=== PATIENT | female | born 2000 ===

== ENCOUNTER 2025-07-26 05:34 | Emergency (ER) | payer OTHER, SELFPAY ==
--- NOTE | 2025-07-26 | ECG_ITS ---
Test Reason : EPIGASTRIC PAIN Blood Pressure : */* mmHG Vent. Rate : 108 BPM Atrial Rate : 108 BPM P-R Int : 114 ms QRS Dur : 84 ms QT Int : 320 ms P-R-T Axes : 39 40 27 degrees QTcB Int : 428 ms Sinus tachycardia Otherwise normal ECG No previous ECGs available Referred By: Generic ED Physician Electronically Signed By: TRACE GARCÍA MD
--- NOTE | ~2025-07-26 | CT_ITS ---
CLINICAL HISTORY: Abdominal pain, vomiting, R O appendicitis Exam: Contrast-enhanced CT abdomen and pelvis with multiplanar reformats. Comparison: None. Findings: CT abdomen: Lung bases are clear. Liver is free of focal lesions and ductal dilatation. Gallbladder is absent. Spleen appears unremarkable. Pancreas and adrenal glands appear unremarkable. Kidneys appear unremarkable. No free intraperitoneal fluid or retroperitoneal masses or adenopathy. Abdominal aorta is normal caliber. Bowel loops reveal no abnormal wall thickening or distention. The appendix is not identified, however there is no secondary CT evidence of appendicitis. No significant diverticular disease. CT pelvis: Uterus and adnexal structures appear unremarkable. Urinary bladder is nondistended although free of gross filling defects. No pelvic masses, fluid or adenopathy. Osseous structures reveal no destructive osseous lesions. Impression: 1. No acute abnormality or CT explanation for abdominal pain. Specifically, the appendix is not identified, however there is no secondary CT evidence of appendicitis. This document has been electronically signed by: Jhonny Golden MD on 07/26/2025 14:05:05
[2025-07-26 05:47] VITALS: BP 122/58; PULSE 110; RESP 18; TEMP 37.2; O2SAT 98; BMI 36.6
[2025-07-26 06:11] LABS: Hematocrit 42.4 % (37.0-47.0); Hemoglobin 13.9 g/dl (12.0-16.0); Imm Gran Abs Auto 0.04 X10*3/uL (0.00-0.03); Imm Gran Pct Auto 0.4 % (0.0-0.4); Lymphocytes Absolute Auto 0.4 X10*3/uL (1.2-4.9); Mean Corpuscular HGB Conc 32.8 g/dl (31.0-35.0); Mean Corpuscular Hemoglobin 27.9 pg (27.0-33.0); Mean Corpuscular Volume 85.1 fL (80.0-98.0); NRBC Abs Auto 0.000 X10*3/uL (0.0-0.012); NRBC Pct Auto 0.0 /100WBC (0.0-0.2); Platelet Count 312 X10*3/uL (160-400); Red Blood Count 4.98 X10*6/uL (4.20-5.50); SCAN SMEAR FLAG 1; White Blood Count 10.6 X10*3/uL (4.8-10.8)
[2025-07-26 06:15] LABS: MANUAL DIFF FLAG SCAN
[2025-07-26 06:33] LABS: Alanine Aminotransferase 13 U/L (0-31); Albumin Level 4.7 g/dL (3.5-5.0); Alkaline Phosphatase 83 U/L (39-117); Anion Gap 14 (12-20); Aspartate Amino Transferase 18 U/L (5-31); Blood Urea Nitrogen 18 mg/dL (9-16); Calcium 9.4 mg/dL (8.4-10.2); Carbon Dioxide 23 mmol/L (22-29); Chloride 108 mmol/L (96-108); Creatinine Clr Calc Pharmacy 134.1; Estimated Glomerular Filt Rate > 60; Lipase 19 U/L (8-78); Magnesium 1.6 mg/dL (1.6-2.6); Potassium 3.8 mmol/L (3.3-5.1); Sodium 141 mmol/L (135-145); Total Protein 7.5 g/dL (6.5-8.0)
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
[2025-07-26 06:48] LABS: Resp Syncy Virus RNA Qual PCR NEGATIVE (Negative); SARS COV2 PCR INHOUSE NEGATIVE (Negative)
--- NOTE | 2025-07-26 07:03 | ED_ITS ---
HPI - Abdominal Pain General Chief Complaint: Abdominal Pain Stated Complaint: N/V/D Time Seen by Provider: 07/26/25 06:41 Source: patient and family Mode of arrival: ambulatory Limitations: no limitations History of Present Illness ED Provider: DR. Means HPI narrative: 25-year-old female brought in for evaluation of nausea, vomiting, nonbloody watery diarrhea, abdominal cramps x1 day started since last night after eating home made hamburger, no fever, no chills, no CP, abdominal pain described as lower abdominal cramps, pain started in the upper abdomen now it is moving down to the suprapubic area feels like cramps on and off associated with nonbloody watery diarrhea and vomiting. No recent travel, no recent antibiotic use. Related Data Previous Rx's ?Medication ?Instructions ?Recorded ondansetron 4 mg disintegrating 4 mg PO TID PRN nausea and 07/26/25 tablet vomiting 5 days #10 tabs Allergies Allergy/AdvReac Type Severity Reaction Status Date / Time No Known Allergies Allergy Verified 07/26/25 05:51 Review of Systems Review of Systems All other systems are reviewed and are negative Constitutional: Reports as per HPI and Reports no additional constitutional complaints Eyes: Reports as per HPI and Reports no additional eye complaints Reports system reviewed and no additional complaints, except as documented Cardiovascular: Reports as per HPI and Reports no additional cardiovascular complaints Respiratory: Reports as per HPI and Reports no additional respiratory complaints Gastrointestinal: Reports as per HPI and Reports no additional gastrointestinal complaints Genitourinary: Reports no additional female genitourinary complaints Musculoskeletal: Reports no additional musculoskeletal complaints Skin/Breast: Reports system reviewed and no additional complaints, except as docu Psychiatric: Reports no additional psychiatric complaints Endocrine: Reports no additional endocrine complaints Hematologic/Lymphatic: Reports no additional hematologic/lymphatic complaints Allergic/Immunologic: Reports no additional allergic/immunologic complaints Reports system reviewed and no additional complaints, except as documented and Reports Abnormal speech present Physical Exam ED Vital Signs: Vital Signs - 24 hr 07/26/25 08:19 07/26/25 10:06 07/26/25 13:39 Temperature 99.6 F 98.9 F Pulse Rate 105 H 102 H 93 Respiratory Rate 18 16 16 Blood Pressure 117/61 121/64 Pulse Oximetry 98 95 98 Oxygen Delivery Method Room Air Room Air Room Air 07/26/25 17:20 07/26/25 17:26 Temperature 98.9 F 98.9 F Pulse Rate 88 88 Respiratory Rate 16 16 Blood Pressure 122/60 122/60 Pulse Oximetry 99 99 Oxygen Delivery Method Room Air Room Air BMI result Body Mass Index 36.6 Vital signs have been reviewed and appear to be correct. Blood pressure elevated. Heart rate normal. Respiratory rate normal. Temperature normal. Oxygen saturation normal. Appearance: Alert. Oriented X3. No acute distress. Head: Normal external exam. Normocephalic. Atraumatic. No Barnes signs noted. No raccoon eyes noted Eyes: PERRLA. EOMI. Conjunctiva and sclera normal. Eyelids normal. ENT: TM's Normal. Pharynx normal. Uvula midline. Moist mucous membranes. No trismus noted. No drooling noted. No muffled voice noted. Neck: Normal inspection. Neck supple. FROM. No adenopathy. Thyroid Normal. No meningeal signs. No neck mass noted. CVS: Normal heart rate and rhythm. Heart sound normal. No murmurs noted. Pulses normal throughout. Respiratory: No respiratory distress. Painless inspiration. Breath sounds normal. No wheezes/rales/rhonchi noted. Chest nontender. No accessory muscle usage noted or decreased air movement noted. Abdomen: Soft, mild epigastric/suprapubic tenderness, no rebound tenderness, no guarding. Bowel sounds normal in all 4 quadrants. No distention noted. No organomegaly noted. No visible injury noted. Back: No CVA tenderness. Full range of motion noted. Skin: Skin warm and dry. Normal skin color. Normal skin turgor. No rashes/lesions/lacerations noted. Extremities: No lower extremity edema. Extremities exhibit normal range of motion. Extremities nontender. Neuro: Oriented X 3. Cranial nerve exam: II-XII are grossly intact No motor deficit. No sensory deficit. Reflexes normal. Course Reevaluation(s) Reevaluation #1: Patient feels much better, able to tolerate p.o. intake, mild nausea with no vomiting, mild abdominal pain with negative CT abdomen pelvis will discharge the patient to follow-up with PCP. Time: 17:00 Medical Decision Making Medical Decision Making MDM Narrative: Patient presents today with having abdominal pain nausea vomiting diarrhea. Generalized malaise. Watery diarrhea. CT scan of the abdomen pelvis per radiology's interpretation is grossly negative. test is negative no related issue. Patient's white count is 11. Slight shift consistent with the diarrhea patient's BUN and creatinine is normal. Eighteen and 0.75 consistent with some mild dehydration IV fluids was given LFTs are normal. Urine showed no gross infection. COVID flu RSV were all negative. Tolerating fluids will discharge home. Differential Diagnosis Differential Diagnoses: The differential diagnosis associated with the presentation includes ( Appendicitis, pancreatitis, colitis, diverticulitis, electrolyte derangement, severe anemia, poisoning, gastroenteritis.) Admission/Observation Consideration of admission/observation: Escalation of care including admission/observation considered Lab Data MDM Lab Attestation statement: I reviewed the patient's lab results. 07/26/25 06:05 07/26/25 06:05 Labs: Lab Results 07/26/25 07/26/25 Range/Units 06:05 06:58 WBC 10.6 (4.8-10.8) X10*3/uL RBC 4.98 (4.20-5.50) X10*6/uL Hgb 13.9 (12.0-16.0) g/dl Hct 42.4 (37.0-47.0) % MCV 85.1 (80.0-98.0) fL MCH 27.9 (27.0-33.0) pg MCHC 32.8 (31.0-35.0) g/dl RDW 12.9 (11.0-16.0) % Plt Count 312 (160-400) X10*3/uL MPV 9.2 L (9.4-12.3) fL Immature Gran % (Auto) 0.4 (0.0-0.4) % Neut % (Auto) 91.7 H (45-73) % Lymph % (Auto) 3.4 L (20-40) % [place] % (Auto) 4.1 (2-11) % Eos % (Auto) 0.1 (0-4) % Baso % (Auto) 0.3 (0-2) % Lymph # (Auto) 0.4 L (1.2-4.9) X10*3/uL [place] # (Auto) 0.4 (0.1-1.2) X10*3/uL Eos # (Auto) 0.0 (0.0-0.4) X10*3/uL Baso # (Auto) 0.0 (0.0-0.2) X10*3/uL Abs Immat Gran (auto) 0.04 H (0.00-0.03) X10*3/uL Absolute Neuts (auto) 9.7 H (2.0-8.3) x10*3/uL Absolute Nucleated RBC 0.000 (0.0-0.012) X10*3/uL Nucleated RBC % (auto) 0.0 (0.0-0.2) /100WBC Smear Tech's Comments VERIFIED Sodium 141 (135-145) mmol/L Potassium 3.8 (3.3-5.1) mmol/L Chloride 108 (96-108) mmol/L Carbon Dioxide 23 (22-29) mmol/L Anion Gap 14 (12-20) BUN 18 H (9-16) mg/dL Creatinine 0.75 (0.5-1.4) mg/dL Estim Creat Clear Calc 134.1 Estimated GFR > 60 Random Glucose 129 H (60-115) mg/dL Calcium 9.4 (8.4-10.2) mg/dL Magnesium 1.6 (1.6-2.6) mg/dL Total Bilirubin 0.7 (0.0-1.0) mg/dL AST 18 (5-31) U/L ALT 13 (0-31) U/L Alkaline Phosphatase 83 (39-117) U/L Total Protein 7.5 (6.5-8.0) g/dL Albumin 4.7 (3.5-5.0) g/dL Lipase 19 (8-78) U/L Beta HCG, Quant < 2 mIU/mL Urine Color Yellow Urine Appearance Clear Urine pH 7.0 (5.0-9.0) Ur Specific [place] 1.015 (1.005-1.025) Urine Protein Trace (Neg-Trace) mg/dL Urine Glucose (UA) Negative (Negative) mg/dL Urine Ketones Trace (Negative) mg/dL Urine Blood Small (1+) H (Negative) Urine Nitrite Negative (Negative) Ur Leukocyte Esterase Negative (Negative) Urine RBC 11-20 H (0-2) /HPF Urine WBC 6-10 H (0-5) /HPF Ur Squamous Epith Cells 6-10 (0-2) /HPF Urine Bacteria Trace (None Seen) Hyaline Casts 0-2 (0-2) /LPF Influenza Type A (PCR) NEGATIVE (Negative) Influenza Type B (PCR) NEGATIVE (Negative) RSV RNA Qual (PCR) NEGATIVE (Negative) SARS-CoV-2 RNA (RT-PCR) NEGATIVE (Negative) Independent Interpretation I performed an independent interpretation of an: EKG (Sinus heart rate is 100 RI QRS QTC within normal limits is no acute ST segment elevation.) Radiology Impression Discussion of test interpretation with radiology: I have reviewed the radiologist's reading. Medications Administered Discontinued Medications Generic Name Dose Route Start Last Admin Trade Name Freq PRN Reason Stop Dose Admin Al Hydroxide/Mg Hydroxide 30 ml 07/26/25 07:03 07/26/25 07:53 Magnesium Hydrox/Alum Hydrox 30 Ml Oral.Susp PO 07/26/25 07:04 30 ml ONCE ONE Administration Famotidine 20 mg 07/26/25 07:03 07/26/25 07:53 Famotidine/Pf 20 Mg/2 Ml Vial IVPUSH 07/26/25 07:04 20 mg ONCE ONE Administration Acetaminophen 1,000 mg in 100 mls @ 400 mls/hr 07/26/25 08:27 07/26/25 10:12 Ofirmev IV 07/26/25 08:41 Infused ONCE ONE Infusion Iohexol 100 ml 07/26/25 13:28 07/26/25 13:28 Iohexol 350 Mg/Ml 100 Ml Infus..Btl IV 07/26/25 13:29 85 ml ONCE ONE Administration Loperamide HCl 2 mg 07/26/25 07:03 07/26/25 07:53 Loperamide Hcl 2 Mg Capsule PO 07/26/25 07:04 2 mg ONCE ONE Administration Ondansetron HCl 4 mg 07/26/25 07:03 07/26/25 07:53 Ondansetron Hcl 4 Mg/2 Ml Vial IVPUSH 07/26/25 07:04 4 mg ONCE ONE Administration Ondansetron HCl 4 mg 07/26/25 13:14 07/26/25 13:36 Ondansetron Hcl 4 Mg/2 Ml Vial IVPUSH 07/26/25 13:15 4 mg ONCE ONE Administration Sucralfate 1 gm 07/26/25 07:03 07/26/25 07:53 Sucralfate Oral Suspension 1 Gm/10 Ml Oral.Susp PO 07/26/25 07:04 1 gm ONCE ONE Administration Discharge Plan Discharge Clinical Impression: Gastroenteritis Patient Disposition: Home, Self-Care Instructions: Gastroenteritis (DC), Acute Nausea and Vomiting (DC) Prescriptions: New ondansetron 4 mg tablet,disintegrating 4 mg PO TID PRN (Reason: nausea and vomiting) 5 Days Qty: 10 0RF Referrals: Physician,Unknown J [Primary Care Provider, Medical] - 07/29/25 Stand Alone Forms: Work/School Release Interventions: ED Discharge Assessment Last Done: 07/26/25 17:26 Discharge Date/Time: 07/26/25 17:26 Print Language: Bengali
[2025-07-26 07:12] LABS: Appearance Urine Clear; Glucose Urine UA Negative (Negative); PH 7.0 (5.0-9.0); Specific Gravity - Urine 1.015 (1.005-1.025); UMIC TRIGGER UACC YES
[2025-07-26 07:22] LABS: UACC Culture Trigger YES
[2025-07-26] MEDS: Sucralfate Oral Suspension 1 GM/10 ML ORAL.SUSP PO (07:53)
[2025-07-26] MEDS: Magnesium Hydrox/Alum Hydrox 30 ML ORAL.SUSP PO (07:53)
[2025-07-26 08:19] VITALS: PULSE 105; RESP 18; TEMP 37.6; O2SAT 98
[2025-07-26 10:06] VITALS: BP 117/61; PULSE 102; RESP 16; TEMP 37.2; O2SAT 95
[2025-07-26] MEDS: iohexoL 350 MG/ML 100 ML INFUS..BTL IV (13:28)
[2025-07-26 13:39] VITALS: BP 121/64; PULSE 93; RESP 16; O2SAT 98
[2025-07-26 17:20] VITALS: BP 122/60; PULSE 88; RESP 16; TEMP 37.2; O2SAT 99
[2025-07-26 17:26] VITALS: BP 122/60; PULSE 88; RESP 16; TEMP 37.2; O2SAT 99
== END 2025-07-26 17:26 | disposition home or self-care (01) ==
PROVIDERS: Emergency Provider Emergency Medicine
DX: K52.9 Noninfective gastroenteritis and colitis, unspecified (principal)
CPT/HCPCS: 74177; 80053; 81001; 83690; 83735; 84702; 85025; 87086; 87637; 93005; 96365; 96366; 96375; 96376; 99285; J0131; J1308; J2405; Q9967

== ENCOUNTER → 2025-07-26 05:57 | Outpatient (BNV) | payer OTHER, SELFPAY | PROVIDERS: Emergency Provider Emergency Medicine; Visit Provider Internal Medicine Cardiovascular Disease | DX: R00.0 Tachycardia, unspecified (principal) | CPT/HCPCS: 93010 ==

== ENCOUNTER → 2025-07-26 13:14 | Outpatient (BNV) | payer OTHER, SELFPAY | PROVIDERS: Emergency Provider Emergency Medicine; Visit Provider Radiology Diagnostic Radiology | DX: R10.9 Unspecified abdominal pain (principal); R11.10 Vomiting, unspecified | CPT/HCPCS: 74177 ==